=== PATIENT | male | born 1980 | race Caucasian/White ===

== ENCOUNTER 2020-12-26 00:18 | Emergency (ER) | payer MEDICAID, SELFPAY ==
[2020-12-26 00:19] VITALS: BP 121/82; PULSE 118; RESP 20; TEMP 36.7; O2SAT 99; BMI 34.0
--- NOTE | 2020-12-26 00:54 | RAD_ITS ---
STUDY: X-RAY CHEST REASON FOR EXAM: Male, 40 years old. Cough TECHNIQUE: Portable, upright, AP chest radiograph COMPARISON: None. FINDINGS: The lungs are clear and expanded. There is no demonstrated pleural abnormality. Normal size heart. Normal mediastinum and chris. Normal visualized pulmonary arteries. Normal visualized aortic arch and descending thoracic aorta. Normal visualized thoracic spine. Normal visualized ribs, clavicles, and shoulders. There is no demonstrated abnormality of the visualized soft tissue structures of the upper abdomen. RAD/Chest 1 View (Portable) IMPRESSION: No acute abnormal cardiopulmonary finding. Electronically Signed: Ky Downs MD at 1:36 EDT Tel , Service support ,
[2020-12-26] MEDS: 0.9% Normal Saline 1,000 ML 999 ML IV (01:16)
[2020-12-26] MEDS: Metoclopramide 10 MG/2 ML Vial IV (01:16)
[2020-12-26] MEDS: Ketorolac 30 MG/ML Syringe IV (01:18)
[2020-12-26] MEDS: DiphenhydrAMINE 50 MG/ML Syringe IV (01:20)
[2020-12-26] MEDS: Orphenadrine 60 MG/2 ML Ampul IV (01:21)
[2020-12-26 01:27] VITALS: PULSE 97; RESP 16; O2SAT 97
[2020-12-26 03:09] VITALS: BP 121/82; PULSE 97; RESP 16; TEMP 36.7; O2SAT 97; O2SAT 98
--- NOTE | 2020-12-26 03:14 | EDS_ITS ---
HPI History of Present Illness Chief Complaint: General Illness Narrative Narrative: Patient is a 40-year-old male who states he has had 3 to 4 days of generalized fatigue with muscle aches and pains as well as mild headache. He denies any fevers or chills associated with this. He denies any nausea vomiting diarrhea or dysuria. He states he is not vaccinated against Covid but denies any known sick contacts. He states he is concerned he has developed the infection however based on his constellation of symptoms and therefore comes in for evaluation [facility] Home Medications NK 12/26/20 [History Last Taken Unknown] methocarbamol 500 mg PO Q6H PRN #40 tab 12/26/20 [Rx Last Taken Unknown] prednisone 40 mg PO DAILY 5 Days #10 tab 12/26/20 [Rx Last Taken Unknown] Allergy/AdvReac Type Severity Reaction Status Date / Time No Known Allergies Allergy Verified 12/26/20 00:22 Social History Smoking Status: Current every day smoker tobacco type: cigarettes ROS ROS ED Constitutional Constitutional ED: Denies chills or fever(s) ENT ENT ED: Denies sore throat Cardiovascular Cardiovascular: Denies chest pain Respiratory/Chest Respiratory/Chest: Denies cough or dyspnea Gastrointestinal Gastrointestinal: Denies abdominal pain, diarrhea, nausea or vomiting Genitourinary Genitourinary ED: Denies dysuria Musculoskeletal Musculoskeletal: Reports back pain and myalgias Integumentary Denies rash Neurologic Neurologic: Reports headache(s) Hematologic/Lymphatic Hematologic/Lymphatic: Denies easy bleeding or easy bruising EXAM Physical Exam Const Vital Signs: 12/26/20 00:19 12/26/20 01:24 12/26/20 01:27 Temperature 98.0 F Temperature Source Temporal Pulse Rate 118 H 97 Respiratory Rate 20 H 16 Respiratory Effort Normal Non-Labored Respiratory Pattern Normal Blood Pressure 121/82 H Blood Pressure Mean 95 Pulse Ox 99 97 Oxygen Delivery Method Room Air Room Air 12/26/20 03:09 Temperature 98.0 F Temperature Source Temporal Pulse Rate 97 Respiratory Rate 16 Respiratory Effort Respiratory Pattern Blood Pressure 121/82 H Blood Pressure Mean 95 Pulse Ox 98 Oxygen Delivery Method Room Air Positive well nourished and well developed General Appearance ED: well developed HEENT Reports moist mucous membranes Negative for trauma Eyes PERRL and EOMs intact bilaterally Neck supple Neck Narrative: No meningeal signs Resp normal respiratory effort and clear to auscultation bilaterally Cardio regular rate and regular rhythm GI normal to inspection, nondistended, normoactive bowel sounds, non-tender and non-distended Auscultation: normoactive bowel sounds Palpation: soft Back/Spine Back/Spine Narrative: No bony deformity or step-off of the thoracic or lumbar spine no midline pain on palpation Extremity normal to inspection Neuro oriented x3 and CN's II-XII intact bilaterally Neuro Narrative: No pronator drift no dysmetria no truncal ataxia. NIH stroke scale score of 0 Sensorium / Orientation: alert Motor Exam: strength 5/5 throughout Psych mental status grossly normal Skin no rashes or lesions noted MDM MDM MDM Narrative Medical decision making narrative: Patient presented to the ER afebrile with no meningeal signs and no signs or report of trauma. Therefore I felt no need for CT scan of his head. His constellation of symptoms are concerning for viral infection mainly Covid so I did elect to perform a rapid Covid swab. Lungs were clear and he had no signs of distress but with the back pain I elected to perform a chest x-ray to rule out lung pathology as a cause of this. Chest x- ray was clear and rapid Covid was negative. After treatment patient reported resolution of his symptoms and his neuro exam remained normal. Therefore I feel patient does have a viral syndrome at this time but as there are no signs of systemic infection he is safe for discharge Radiography Diagnostic Testing: Radiology Impression Chest X-Ray 12/26/20 00:54 IMPRESSION: No acute abnormal cardiopulmonary finding. Electronically Signed: Ky Downs MD at 1:36 EDT Tel , Service support , Discharge Plan Triage Chief Complaint: General Illness ED Provider: Atul oGvea Dx/Rx/DC Orders Clinical Impression: Acute viral syndrome Instructions: ED Viral Syndrome (Adult) Prescriptions: New methocarbamol 500 mg tablet 500 mg PO Q6H PRN (Reason: Muscle pain/spasm) Qty: 40 RF: 0 prednisone 20 mg tablet 40 mg PO DAILY 5 Days Qty: 10 RF: 0 No Action NK RF: 0 Primary Care Provider: Care Physician,No Primary Referrals: Fast,Tahira, DO [NON-STAFF] - 3-5 Days if not improving Care Physician,No Primary [Primary Care Provider] - Disposition Disposition: Home, Self Care
[2020-12-26 03:49] VITALS: PULSE 76; RESP 16; O2SAT 100
== END 2020-12-26 03:50 | disposition home or self-care (01) ==
PROVIDERS: Emergency Provider Emergency Medicine
DX: B34.9 Viral infection, unspecified (principal); F17.210 Nicotine dependence, cigarettes, uncomplicated
CPT/HCPCS: 71045; 87426; 96361; 96374; 96375; 99283; J7030; A4216